=== PATIENT | male | born 1995 | race Two or more races ===

== ENCOUNTER 2017-10-20 11:18 | Outpatient (CLI) | payer OTHER | END 2017-10-20 11:30 | disposition home or self-care (01) | LOC: RAD 501 11:18 | DX: J45.998 Other asthma (principal) ==

== ENCOUNTER 2020-07-30 14:12 | Outpatient (CLI) | payer OTHER | END 2020-07-30 14:22 | disposition home or self-care (01) | LOC: SONOGRAMA 14:12 | PROVIDERS: ATTEND Specialist | DX: E04.0 Nontoxic diffuse goiter (principal); E04.8 Other specified nontoxic goiter ==

== ENCOUNTER 2021-08-06 08:00 | Outpatient (CLI) | payer OTHER | END 2021-08-06 08:30 | disposition home or self-care (01) | LOC: PPH VACUNA 08:00 | PROVIDERS: ATTEND Emergency Medicine Pediatric Emergency Medicine | DX: Z23 Encounter for immunization (principal) ==

== ENCOUNTER 2024-07-28 07:16 | Outpatient (CLI) | payer OTHER | END 2024-07-28 07:17 | disposition home or self-care (01) | LOC: NUCLEAR 07:16 | DX: N28.89 Other specified disorders of kidney and ureter (principal) ==

== ENCOUNTER 2025-02-08 07:31 | Outpatient (CLI) | payer OTHER | END 2025-02-08 07:33 | disposition home or self-care (01) | LOC: TOM 07:31 | PROVIDERS: ATTEND Urology | DX: C64.1 Malignant neoplasm of right kidney, except renal pelvis (principal) ==